=== PATIENT | male | born 1955 | race Two or more races ===

== ENCOUNTER 2017-12-10 08:32 | Day surgery (SDC) | payer BC ==
[2017-12-07 13:42] VITALS: BMI 34.7
[2017-12-10 10:51] VITALS: TEMP 97.8
[2017-12-10 12:07] VITALS: BP 130/76; PULSE 64
--- NOTE | 2017-12-11 15:00 | PATH ---
Surgical Pathology Report Patient Name: SILVERIO BOYER [facility]. Rec. #: [id number] /Age/Gender: 1955 (Age: 62) / M Account: [id number] Location: [facility]SU-ENDOSCOPY Taken: 12/10/2017 Received: 12/10/2017 Reported: 12/11/2017 Physicians: Hansel Cronin D.O. Specimen(s) Received A: BX HEPATIC FLEXURE POLYP B: BX DISTAL RIGHT COLON POLYP C: BX PROXIMAL TRANSVERSE COLON POLYP D: POLYP SIGMOID Clinical History Colon cancer screening Postoperative diagnosis: Colon polyps, hemorrhoids Final Diagnosis A. HEPATIC FLEXURE POLYPS X 2, POLYPECTOMY: TUBULAR ADENOMA, TWO FRAGMENTS. B. DISTAL RIGHT COLON POLYP, POLYPECTOMY: TUBULAR ADENOMA. C. PROXIMAL TRANSVERSE COLON POLYP, POLYPECTOMY: TUBULAR ADENOMA. D. SIGMOID POLYP, POLYPECTOMY: HYPERPLASTIC POLYP. Electronically Signed Sami Montez M.D. Gross Description A. Received in formalin, labeled "hepatic flexure polyps" are 2 medrano, irregular portions of soft tissue measuring 0.2 and 0.3 cm. in greatest dimension. The specimens are submitted in toto in one cassette. B. Received in formalin, labeled "distal right colon polyp" is a medrano, irregular portion of soft tissue measuring 1 x 0.7 x 0.3 cm. in greatest dimension. The base of the polyp is inked in blue. The specimen is serially sectioned and entirely submitted in toto in one cassette. C. Received in formalin, labeled "proximal transverse colon polyp" is a medrano, irregular portion of soft tissue measuring 0.3 cm. in greatest dimension. The specimen is submitted in toto in one cassette. D. Received in formalin, labeled "sigmoid polyp" is a medrano, irregular portion of soft tissue measuring 0.3 cm. in greatest dimension. The specimen is submitted in toto in one cassette. MLSZ/12/10/2017 sanml/12/10/2017
== END 2017-12-10 11:55 | disposition home or self-care (01) ==
LOC: JASU-ENDO 08:32
PROVIDERS: ATTEND Internal Medicine Gastroenterology
PROC: 0DBN8ZX Excision of Sigmoid Colon, Via Natural or Artificial Opening Endoscopic, Diagnostic (ICD-10-PCS; 2017-12-10)
PROC: 0DBL8ZX Excision of Transverse Colon, Via Natural or Artificial Opening Endoscopic, Diagnostic (ICD-10-PCS; 2017-12-10)
PROC: 0DBK8ZX Excision of Ascending Colon, Via Natural or Artificial Opening Endoscopic, Diagnostic (ICD-10-PCS; principal; 2017-12-10 10:45)
DX: Z12.11 Encounter for screening for malignant neoplasm of colon (principal); D12.5 Benign neoplasm of sigmoid colon; D12.3 Benign neoplasm of transverse colon; K64.8 Other hemorrhoids
CPT/HCPCS: 88305-TC

== ENCOUNTER 2020-09-30 04:33 | Day surgery (SDC) | payer BC ==
[2020-09-29 11:04] VITALS: BMI 33.5
[2020-09-30 09:15] VITALS: TEMP 98
[2020-09-30 10:18] VITALS: BP 123/68; PULSE 60
== END 2020-09-30 10:04 | disposition home or self-care (01) ==
LOC: JASU-ENDO 04:33
PROVIDERS: ATTEND Internal Medicine Gastroenterology
PROC: 0DBP8ZX Excision of Rectum, Via Natural or Artificial Opening Endoscopic, Diagnostic (ICD-10-PCS; 2020-09-30)
PROC: 0DBM8ZX Excision of Descending Colon, Via Natural or Artificial Opening Endoscopic, Diagnostic (ICD-10-PCS; 2020-09-30)
PROC: 0DBK8ZX Excision of Ascending Colon, Via Natural or Artificial Opening Endoscopic, Diagnostic (ICD-10-PCS; principal; 2020-09-30 09:00)
DX: Z12.11 Encounter for screening for malignant neoplasm of colon (principal); Z86.010 Personal history of colon polyps; K62.1 Rectal polyp; D12.4 Benign neoplasm of descending colon; D12.2 Benign neoplasm of ascending colon; K64.8 Other hemorrhoids; K63.89 Other specified diseases of intestine
CPT/HCPCS: 88305-TC

== ENCOUNTER 2023-10-18 04:16 | Day surgery (SDC) | payer OTHER, BC ==
[2023-10-16 14:10] VITALS: BMI 33.0
[2023-10-18] MEDS ORDERED: BUPIVACAINE HCL/PF 0.5% (5MG/ML) 10 ML VIAL ONE (07:40)
[2023-10-18] MEDS ORDERED: LIDOCAINE HCL/PF 1% SDV 5ML VIAL ONE (07:40)
[2023-10-18 10:54] VITALS: TEMP 97.8
[2023-10-18] MEDS: BUPIVACAINE HCL/PF 0.5% (5MG/ML) 10 ML VIAL IJ ONE ×2 (12:17)
[2023-10-18 12:53] VITALS: BP 135/77; PULSE 60; RESP 16
[2023-10-18] MEDS ORDERED: ACETAMINOPHEN 500 MG TABLET (FP) PO PRN (18:26)
== END 2023-10-18 12:58 | disposition home or self-care (01) ==
LOC: JASU-SURG 04:16
PROVIDERS: ATTEND Pain Medicine Pain Medicine
PROC: 3E0T3BZ Introduction of Anesthetic Agent into Peripheral Nerves and Plexi, Percutaneous Approach (ICD-10-PCS; principal; 2023-10-18 12:00)
DX: M47.812 Spondylosis without myelopathy or radiculopathy, cervical region (principal)
CPT/HCPCS: 76000-TC-FY

== ENCOUNTER 2023-11-29 04:11 | Day surgery (SDC) | payer OTHER, BC ==
[2023-11-27 15:52] VITALS: BMI 33.0
[2023-11-29] MEDS ORDERED: BUPIVACAINE HCL/PF 0.5% (5MG/ML) 10 ML VIAL ONE (07:19)
[2023-11-29] MEDS ORDERED: ACETAMINOPHEN 500 MG TABLET (FP) PO PRN (10:26)
[2023-11-29] MEDS: BUPIVACAINE HCL/PF 0.5% (5MG/ML) 10 ML VIAL IJ ONE (12:43)
[2023-11-29 13:41] VITALS: BP 130/64; PULSE 70; RESP 80; TEMP 97.6
== END 2023-11-29 13:40 | disposition home or self-care (01) ==
LOC: JASU-SURG 04:11
PROVIDERS: ATTEND Pain Medicine Pain Medicine
PROC: 3E0T3BZ Introduction of Anesthetic Agent into Peripheral Nerves and Plexi, Percutaneous Approach (ICD-10-PCS; principal; 2023-11-29 12:15)
DX: M47.812 Spondylosis without myelopathy or radiculopathy, cervical region (principal)
CPT/HCPCS: 76000-TC-FY